=== PATIENT | female | born 1990 | race Two or more races ===

== ENCOUNTER 2020-09-30 14:33 | Emergency (ER) | payer OTHER ==
[~2020-09-30] VITALS: Ht 160 cm; Wt 63.5 kg
[2020-09-30] MEDS ORDERED: ZITHROMAX200 MG PO (19:52)
[2020-09-30] MEDS ORDERED: ZYRTEC10 M3 PO (19:52)
[2020-09-30] MEDS ORDERED: NORFLEX100MG PO (19:55)
[2020-09-30] MEDS ORDERED: IBU800 MG PO (19:55)
== END 2020-09-30 20:00 | disposition home or self-care (01) ==
LOC: ER 14:33
DX: J06.9 Acute upper respiratory infection, unspecified (principal); A49.3 Mycoplasma infection, unspecified site

== ENCOUNTER 2021-06-18 21:02 | Emergency (ER) | payer OTHER ==
[~2021-06-18] VITALS: Ht 160 cm; Wt 68.0 kg
[~2021-06-18 21:02] MED LIST: IBU800 MG PO; NORFLEX100MG PO; ZITHROMAX200 MG PO; ZYRTEC10 M3 PO
[2021-06-19] MEDS ORDERED: PEPCID AC20 MG PO (01:44)
[2021-06-19] MEDS ORDERED: ZOFRAN8 MG PO (01:44)
== END 2021-06-19 01:53 | disposition home or self-care (01) ==
LOC: ER 21:02
DX: K29.70 Gastritis, unspecified, without bleeding (principal)

== ENCOUNTER 2024-03-15 23:32 | Emergency (ER) | payer OTHER ==
[~2024-03-15] VITALS: Ht 160 cm; Wt 68.0 kg
[~2024-03-15 23:32] MED LIST changes: +PEPCID AC20 MG PO; +ZOFRAN8 MG PO
[2024-03-16] MEDS ORDERED: CEFTRIAXONE SODIUM 1,000 MG VIAL IM STA (03:20)
[2024-03-16] MEDS ORDERED: CEFTRIAXONE SODIUM 2,000 MG VIAL ONE (03:46)
== END 2024-03-16 03:48 | disposition home or self-care (01) ==
LOC: ER 23:32
DX: R53.81 Other malaise (principal); J03.90 Acute tonsillitis, unspecified; Z91.018 Allergy to other foods